=== PATIENT | female | born 1955 | race Caucasian/White ===

== ENCOUNTER → 2017-02-15 | Outpatient (CLI) | payer OTHER ==
[2017-02-15 07:15] LABS: HEMOGLOBIN 15.4 g/dL (11.7-16.4)
[2017-02-15 07:38] LABS: PATH.CAST-FLAG NOT PRESENT; SPERM-FLAG NOT PRESENT; SRC-FLAG NOT PRESENT; XTAL-FLAG NOT PRESENT; YLC-FLAG NOT PRESENT
[2017-02-15 08:03] LABS: ASPARTATE AMINO TRANSFERASE 27 U/L (15-37); BLOOD UREA NITROGEN 22 mg/dL (7-18)
== END | disposition home or self-care (01) ==
LOC: LAB 06:55
PROVIDERS: ATTEND Family Medicine
DX: I10 Essential (primary) hypertension (principal); E78.2 Mixed hyperlipidemia; E03.9 Hypothyroidism, unspecified; E55.9 Vitamin D deficiency, unspecified; D70.9 Neutropenia, unspecified; N07.9 Hereditary nephropathy, not elsewhere classified with unspecified morphologic lesions
CPT/HCPCS: 36415; 80053; 80061; 81001; 82306; 84443; 85025

== ENCOUNTER 2017-10-02 17:30 | Emergency (ER) | payer OTHER ==
[~2017-10-02] VITALS: Ht 165.1 cm; Wt 55.6 kg
[2017-10-02 17:35] VITALS: BP 146/105
[2017-10-02 18:19] LABS: HEMATOCRIT 42.9 % (34.6-47.8); HEMOGLOBIN 14.6 g/dL (11.7-16.4); WHITE BLOOD COUNT 11.6 x10^3/uL (3.4-10)
[2017-10-02 18:26] LABS: ASPARTATE AMINO TRANSFERASE 18 U/L (15-37); BLOOD UREA NITROGEN 10 mg/dL (7-18)
[2017-10-02] MEDS ORDERED: SODIUM CHLORIDE 0.9% 1,000ML IVBOLUS ONE ×2 (18:30→20:30)
[2017-10-02] MEDS ORDERED: SODIUM CHLORIDE FLUSH 10ML SYR IVF ONE (19:00)
[2017-10-02 19:02] LABS: PATH.CAST-FLAG NOT PRESENT; SPERM-FLAG NOT PRESENT; SRC-FLAG NOT PRESENT; XTAL-FLAG NOT PRESENT; YLC-FLAG NOT PRESENT
[2017-10-02] MEDS ORDERED: LEVO50TA5 PO (19:04)
[2017-10-02] MEDS ORDERED: LISI-167 PO (19:05)
[2017-10-02] MEDS ORDERED: AMLO10TA2 PO (19:05)
[2017-10-02] MEDS ORDERED: METH2.5T PO (19:07)
[2017-10-02] MEDS ORDERED: CELE200C PO (19:07)
[2017-10-02] MEDS ORDERED: ALEN70TA3 PO (19:08)
[2017-10-02] MEDS ORDERED: ADAL10SY SQ (19:09)
[2017-10-02] MEDS ORDERED: CHOL200040 PO (19:10)
[2017-10-02] MEDS ORDERED: FOLI-17 PO (19:10)
[2017-10-02] MEDS ORDERED: DOCU240C53 PO (19:11)
[2017-10-02] MEDS ORDERED: OMNIPAQUE 350 MG/ML, 100ML BOTTLE ONE (19:25)
== END 2017-10-02 21:39 | disposition home or self-care (01) ==
LOC: ED 21:33
DX: K52.9 Noninfective gastroenteritis and colitis, unspecified (principal); M06.9 Rheumatoid arthritis, unspecified
CPT/HCPCS: 36415; 74177; 80053; 81001; 85025; 87086; 99285; J7030; Q9967

== ENCOUNTER 2017-10-05 19:22 | Inpatient (IN) | payer OTHER ==
[~2017-10-05] VITALS: Ht 165.1 cm; Wt 54.2 kg
[~2017-10-05 19:22] MED LIST: ADAL10SY SQ; ALEN70TA3 PO; AMLO10TA2 PO; CELE200C PO; CHOL200040 PO; DOCU240C53 PO; FOLI-17 PO; LEVO50TA5 PO; LISI-167 PO; METH2.5T PO
[2017-10-05] MEDS ORDERED: ONDANSETRON 2MG/ML, 2ML IVPush ONE (20:30)
[2017-10-05] MEDS ORDERED: SODIUM CHLORIDE 0.9% 1,000ML IVBOLUS ONE (20:30)
[2017-10-05] MEDS ORDERED: ONDANSETRON 2MG/ML, 2ML ONE (20:41)
[2017-10-05 20:47] LABS: HEMATOCRIT 35.8 % (34.6-47.8); HEMOGLOBIN 12.1 g/dL (11.7-16.4); WHITE BLOOD COUNT 4.7 x10^3/uL (3.4-10)
[2017-10-05 20:59] LABS: ASPARTATE AMINO TRANSFERASE 33 U/L (15-37); BLOOD UREA NITROGEN 8 mg/dL (7-18)
[2017-10-05] MEDS ORDERED: CIPROFLOXACIN/PMX 400MG/200ML 200 ML IV ONE (22:30)
[2017-10-05] MEDS ORDERED: METRONIDAZOLE PMX 500MG/100ML 100 ML IV ONE (22:30)
[2017-10-05] MEDS ORDERED: SODIUM CHLORIDE 0.9% 1,000 ML IV ONE (22:34)
[2017-10-05] MEDS ORDERED: METRONIDAZOLE PMX 500MG/100ML 100 ML ONE (22:52)
[2017-10-05] MEDS ORDERED: ONDANSETRON 2MG/ML, 2ML IVPush PRN (23:00)
[2017-10-05] MEDS ORDERED: HYDROmorphone 1 MG/ML, 1ML IVPush PRN (23:00)
[2017-10-05 23:49] VITALS: BP 132/87
[2017-10-06] MEDS ORDERED: HYDROmorphone 2 MG/ML, 1ML IVPush PRN
[2017-10-06] MEDS ORDERED: ACETAMINOPHEN 325 MG TABLET PO PRN
[2017-10-06] MEDS: LACTATED RINGERS 1,000 ML IV SCH ×3 (00:51→22:21)
[2017-10-06] MEDS: CEFTRIAXONE PMX 1GM/50ML 50 ML IV SCH (00:51)
[2017-10-06] MEDS: ENOXAPARIN 40 MG/0.4 ML SQ SCH ×2 (00:55→23:22)
[2017-10-06] MEDS ORDERED: CIPROFLOXACIN/PMX 400MG/200ML 200 ML IV ONE (02:00)
[2017-10-06] MEDS: ONDANSETRON 2MG/ML, 2ML IVPush PRN ×3 (04:22→20:31)
[2017-10-06 04:31] LABS: HEMATOCRIT 36.1 % (34.6-47.8); HEMOGLOBIN 12.2 g/dL (11.7-16.4); WHITE BLOOD COUNT 3.8 x10^3/uL (3.4-10)
[2017-10-06 04:32] VITALS: BP 106/69
[2017-10-06 04:41] LABS: ASPARTATE AMINO TRANSFERASE 26 U/L (15-37); BLOOD UREA NITROGEN 5 mg/dL (7-18)
[2017-10-06 08:46] VITALS: BP 127/81
[2017-10-06] MEDS: AMLODIPINE 5 MG TABLET PO SCH (08:53)
[2017-10-06] MEDS: CHOLECALCIFEROL 1,000 UNIT TABLET PO SCH (08:53)
[2017-10-06] MEDS: FOLIC ACID 1 MG TABLET PO SCH (08:53)
[2017-10-06] MEDS: DOCUSATE 100 MG CAPSULE PO SCH ×2 (08:53→20:33)
[2017-10-06] MEDS: LEVOTHYROXINE 50 MCG TABLET PO SCH (08:53)
[2017-10-06] MEDS: LISINOPRIL 10 MG TABLET PO SCH (08:55)
[2017-10-06] MEDS: METRONIDAZOLE PMX 500MG/100ML 100 ML IV SCH ×3 (09:39→23:22)
[2017-10-06] MEDS: OXYcodone IR 5MG TABLET PO PRN ×2 (11:53→22:24)
[2017-10-06 15:54] VITALS: BP 132/83
[2017-10-06 18:36] VITALS: BP 123/82
[2017-10-07 00:26] VITALS: BP 115/75
[2017-10-07] MEDS: CEFTRIAXONE PMX 1GM/50ML 50 ML IV SCH ×2 (00:29→23:30)
[2017-10-07] MEDS: ONDANSETRON 2MG/ML, 2ML IVPush PRN ×2 (05:36→15:16)
[2017-10-07] MEDS: METRONIDAZOLE PMX 500MG/100ML 100 ML IV SCH ×2 (07:43→15:34)
[2017-10-07 07:49] VITALS: BP 130/81
[2017-10-07] MEDS: DOCUSATE 100 MG CAPSULE PO SCH ×2 (07:49→20:32)
[2017-10-07] MEDS: LEVOTHYROXINE 50 MCG TABLET PO SCH (07:51)
[2017-10-07] MEDS: LISINOPRIL 10 MG TABLET PO SCH (07:52)
[2017-10-07] MEDS: AMLODIPINE 5 MG TABLET PO SCH (07:52)
[2017-10-07] MEDS: CHOLECALCIFEROL 1,000 UNIT TABLET PO SCH (07:52)
[2017-10-07] MEDS: FOLIC ACID 1 MG TABLET PO SCH (07:52)
[2017-10-07] MEDS: LACTATED RINGERS 1,000 ML IV SCH ×2 (10:21→20:27)
[2017-10-07] MEDS ORDERED: OMNIPAQUE 350 MG/ML, 100ML BOTTLE ONE (12:59)
[2017-10-07 13:39] VITALS: BP 140/92
[2017-10-07 20:01] VITALS: BP 133/81
[2017-10-07] MEDS: KETOROLAC 30 MG/1 ML IVPush SCH (20:26)
[2017-10-07] MEDS: ENOXAPARIN 40 MG/0.4 ML SQ SCH (23:31)
[2017-10-08] MEDS: METRONIDAZOLE PMX 500MG/100ML 100 ML IV SCH ×2 (00:15→07:49)
[2017-10-08] MEDS: ONDANSETRON 2MG/ML, 2ML IVPush PRN (00:15)
[2017-10-08] MEDS: KETOROLAC 30 MG/1 ML IVPush SCH (02:13)
[2017-10-08 02:19] VITALS: BP 111/71
[2017-10-08] MEDS ORDERED: KETOROLAC 30 MG/1 ML IVPush SCH (07:30)
[2017-10-08] MEDS: LACTATED RINGERS 1,000 ML IV SCH (07:49)
[2017-10-08] MEDS: LEVOTHYROXINE 50 MCG TABLET PO SCH (07:57)
[2017-10-08 08:13] VITALS: BP 133/79
[2017-10-08] MEDS ORDERED: CIPR500T87 PO (08:29)
[2017-10-08] MEDS ORDERED: METR500T PO (08:29)
[2017-10-08] MEDS ORDERED: ONDA4TAB7 PO (08:33)
[2017-10-08] MEDS ORDERED: FLUC100T PO (08:33)
== END 2017-10-08 09:00 | disposition home or self-care (01) | DRG 392 ==
LOC: ED 20:16 → EDIP 22:40 → 3NW 23:37
PROVIDERS: ADMIT Internal Medicine; ATTEND Hospitalist
DX: K57.92 Diverticulitis of intestine, part unspecified, without perforation or abscess without bleeding (principal); E44.0 Moderate protein-calorie malnutrition; Z68.1 Body mass index [BMI] 19.9 or less, adult; E03.9 Hypothyroidism, unspecified; I10 Essential (primary) hypertension; I86.2 Pelvic varices; K52.9 Noninfective gastroenteritis and colitis, unspecified; M06.9 Rheumatoid arthritis, unspecified; M81.0 Age-related osteoporosis without current pathological fracture; Z79.899 Other long term (current) drug therapy; Z88.8 Allergy status to other drugs, medicaments and biological substances
CPT/HCPCS: 36415; 74177; 80053; 81003; 83605; 83690; 83735; 84100; 84145; 85025; 85651; 86141; 87324; 96361; 96374; J0696; J0744; J1650; J1885; J2405; Q9967; J7030; J7120

== ENCOUNTER → 2017-11-15 | Outpatient (CLI) | payer OTHER ==
[~2017-11-15] MED LIST changes: +CIPR500T87 PO; +FLUC100T PO; +METR500T PO; +ONDA4TAB7 PO
[2017-11-15 10:21] LABS: BASOPHILS # (AUTO) 0.01 x10^3/uL (0-0.1); BASOPHILS % (AUTO) 0 % (0-1); EOSINOPHILS # (AUTO) 0.06 x10^3/uL (0-0.4); EOSINOPHILS % (AUTO) 1 % (1-7); LYMPHOCYTES # (AUTO) 1.29 x10^3/uL (1-3.4); LYMPHOCYTES % (AUTO) 27 % (22-44); MD NO; MEAN CORPUSCULAR HEMOGLOBIN 32.2 pg (27.0-34.8); MEAN CORPUSCULAR HGB CONC 34.1 g/dL (32.4-35.8); MEAN CORPUSCULAR VOLUME 94.4 fL (80-100); MEAN PLATELET VOLUME 7.6 fL (7.4-10.4); MONOCYTES # (AUTO) 0.44 x10^3/uL (0.2-0.8); MONOCYTES % (AUTO) 9 % (2-9); NEUTROPHILS # (AUTO) 3.05 x10^3/uL (1.8-6.8); NEUTROPHILS % (AUTO) 63 % (42-75); PLATELET COUNT 338 x10^3/uL (130-400); RED BLOOD COUNT 4.58 x10^6/uL (3.82-5.3); RED CELL DISTRIBUTION WIDTH 14.6 % (9.6-15.2)
[2017-11-15 10:23] LABS: MICROSCOPIC AUTO
[2017-11-15 10:29] LABS: HCT (SEDRATE) 43.2 % (34.6-47.8)
[2017-11-15 10:32] LABS: ALANINE AMINOTRANSFERASE 40 U/L (12-78); ALBUMIN 3.8 g/dL (3.4-5.0); ANION GAP 8 mmol/L (5-15); CALCIUM 8.3 mg/dL (8.5-10.1); CHLORIDE 104 mmol/L (98-107); CHOLESTEROL, TOTAL 130 mg/dL (140-239); TRIGLYCERIDES 70 mg/dL (50-200); VLDL CHOLESTEROL 14 mg/dL (0-25)
[2017-11-15 10:42] LABS: ALKALINE PHOSPHATASE 63 U/L (45-117); BILIRUBIN,TOTAL 0.5 mg/dL (0.2-1.0); CHOL/HDL RATIO 2.7; HDL CHOL % 38 % (28-40); HDL CHOLESTEROL (DIRECT) 49 mg/dL (40-60); LDL CHOLESTEROL,CALCULATED 67 mg/dL (54-169); LDL/HDL RATIO 1.4 (0.5-3.0)
== END ==
LOC: LAB 10:02
PROVIDERS: ATTEND Specialist
DX: I10 Essential (primary) hypertension (principal); E78.9 Disorder of lipoprotein metabolism, unspecified; E03.9 Hypothyroidism, unspecified; E55.9 Vitamin D deficiency, unspecified; M05.79 Rheumatoid arthritis with rheumatoid factor of multiple sites without organ or systems involvement; M05.40 Rheumatoid myopathy with rheumatoid arthritis of unspecified site; Z77.21 Contact with and (suspected) exposure to potentially hazardous body fluids; Z79.899 Other long term (current) drug therapy
CPT/HCPCS: 36415; 80053; 80061; 81001; 82306; 84443; 85025; 85651; 86803

== ENCOUNTER → 2017-11-29 | Outpatient (CLI) | payer OTHER ==
[~2017-11-29] MED LIST changes: +CHOL100011 PO
== END | disposition home or self-care (01) ==
LOC: STAR 08:00
PROVIDERS: ATTEND Surgery
DX: Z01.818 Encounter for other preprocedural examination (principal)
CPT/HCPCS: 93005

== ENCOUNTER 2017-12-12 06:11 | Inpatient (IN) | payer OTHER ==
[2017-11-29 08:30] VITALS: BP 119/76
[~2017-12-12] VITALS: Ht 165.1 cm; Wt 53.6 kg
[2017-12-12] MEDS ORDERED: BUPIVACAINE/PF 0.5% ONE (06:41)
[2017-12-12] MEDS ORDERED: INDOCYANINE GREEN 25 MG VIAL ONE (06:41)
[2017-12-12] MEDS ORDERED: LACTATED RINGERS 1,000 ML IV SCH (06:42)
[2017-12-12] MEDS ORDERED: ACETAMINOPHEN 500 MG TABLET PO ONE (07:00)
[2017-12-12] MEDS ORDERED: GABAPENTIN 300 MG CAPSULE PO ONE (07:00)
[2017-12-12] MEDS ORDERED: ROCURONIUM 10 MG/ML,10ML ONE (07:17)
[2017-12-12] MEDS ORDERED: PROPOFOL 10 MG/ML, 20ML ONE (07:17)
[2017-12-12] MEDS ORDERED: LIDOCAINE-MPF 2% ,5ML ONE (07:17)
[2017-12-12] MEDS ORDERED: DEXAMETHASONE 4 MG/ML, 1ML ONE ×2 (07:29)
[2017-12-12] MEDS ORDERED: ROPIvacaine/PF 0.2%, 20 ML ONE ×2 (07:37)
[2017-12-12] MEDS ORDERED: FENTANYL PF 100 MCG/2ML ONE ×2 (08:09→09:32)
[2017-12-12] MEDS ORDERED: PHENYLEPHRINE 10 MG/ML ONE (08:26)
[2017-12-12] MEDS ORDERED: ONDANSETRON 2MG/ML, 2ML ONE ×4 (08:50→10:09)
[2017-12-12] MEDS ORDERED: HYDROcodone/APAP 7.5-325MG/15ML UDC PO PRN (09:00)
[2017-12-12] MEDS ORDERED: morphine SULFATE 10 MG/ML, 1ML IV PRN (09:00)
[2017-12-12] MEDS ORDERED: OXYcodone 5 MG/5 ML ORAL.SOL UDC PO PRN (09:00)
[2017-12-12] MEDS ORDERED: ONDANSETRON 2MG/ML, 2ML IVPush PRN (09:00)
[2017-12-12] MEDS ORDERED: MEPERIDINE/PF 25MG/0.5ML IVPush PRN (09:00)
[2017-12-12] MEDS ORDERED: GLYCOPYRROLATE 0.2MG/1ML, 5ML ONE (09:08)
[2017-12-12] MEDS ORDERED: NEOSTIGMINE 1 MG/ML, 10ML ONE (09:08)
[2017-12-12] MEDS ORDERED: OXYcodone 5 MG/5 ML ORAL.SOL UDC ONE (09:32)
[2017-12-12] MEDS: FENTANYL PF 100 MCG/2ML IV PRN ×2 (09:33→09:41)
[2017-12-12] MEDS ORDERED: LABETALOL 5MG/ML, 20ML ONE (09:44)
[2017-12-12] MEDS ORDERED: hydrALAzine 20 MG/ML, 1ML ONE (09:45)
[2017-12-12] MEDS ORDERED: MEPERIDINE/PF 50 MG/ML ONE (09:59)
[2017-12-12] MEDS ORDERED: LABETALOL 5MG/ML, 20ML IV PRN (10:00)
[2017-12-12] MEDS ORDERED: DIPHENHYDRAMINE 50 MG/ML, 1ML ONE (12:30)
[2017-12-12 13:38] VITALS: BP 133/86
[2017-12-12] MEDS: ONDANSETRON 2MG/ML, 2ML IV PRN (13:49)
[2017-12-12] MEDS ORDERED: HYDROmorphone 1 MG/ML, 1ML IVPush PRN (14:00)
[2017-12-12] MEDS ORDERED: HALOPERIDOL 5 MG/ML IVPush PRN (14:00)
[2017-12-12] MEDS ORDERED: SCOPOLAMINE PATCH, 1.5MG PATCH.TD72 TD PRN (14:00)
[2017-12-12] MEDS ORDERED: DIPHENHYDRAMINE 50 MG/ML, 1ML IVPush PRN (14:00)
[2017-12-12] MEDS ORDERED: DEXAMETHASONE 4 MG/ML, 1ML IVPush PRN (14:00)
[2017-12-12] MEDS: ACETAMINOPHEN 500 MG TABLET PO SCH ×2 (14:23→20:14)
[2017-12-12] MEDS: OXYcodone IR 5MG TABLET PO PRN ×2 (15:10→18:09)
[2017-12-12] MEDS: IBUPROFEN 800 MG TABLET PO SCH ×2 (16:08→22:03)
[2017-12-12] MEDS: D5%-0.45NACL+KCL 20MEQ 1,000 ML IV SCH (16:08)
[2017-12-12] MEDS ORDERED: CEFOTETAN 1 GM ONE (16:10)
[2017-12-12 18:54] VITALS: BP 115/66
[2017-12-13 00:47] VITALS: BP 109/62
[2017-12-13] MEDS: ENOXAPARIN 40 MG/0.4 ML SQ SCH (02:24)
[2017-12-13] MEDS: ACETAMINOPHEN 500 MG TABLET PO SCH ×4 (02:24→20:50)
[2017-12-13 03:41] VITALS: BP 118/72
[2017-12-13 04:02] LABS: ANION GAP 7 mmol/L (5-15); BASOPHILS # (AUTO) 0.03 x10^3/uL (0-0.1); BASOPHILS % (AUTO) 0 % (0-1); CHLORIDE 109 mmol/L (98-107); CREATININE 0.67 mg/dL (0.55-1.02); EOSINOPHILS # (AUTO) 0.01 x10^3/uL (0-0.4); EOSINOPHILS % (AUTO) 0 % (1-7); LYMPHOCYTES % (AUTO) 16 % (22-44); MD NO; MEAN CORPUSCULAR HEMOGLOBIN 31.7 pg (27.0-34.8); MEAN CORPUSCULAR HGB CONC 33.3 g/dL (32.4-35.8); MEAN CORPUSCULAR VOLUME 95.2 fL (80-100); MEAN PLATELET VOLUME 8.4 fL (7.4-10.4); MONOCYTES # (AUTO) 1.29 x10^3/uL (0.2-0.8); MONOCYTES % (AUTO) 14 % (2-9); NEUTROPHILS # (AUTO) 6.65 x10^3/uL (1.8-6.8); NEUTROPHILS % (AUTO) 70 % (42-75); PLATELET COUNT 267 x10^3/uL (130-400); RED BLOOD COUNT 4.26 x10^6/uL (3.82-5.3); RED CELL DISTRIBUTION WIDTH 14.9 % (9.6-15.2)
[2017-12-13] MEDS: LEVOTHYROXINE 50 MCG TABLET PO SCH (05:11)
[2017-12-13] MEDS ORDERED: ALENDRONATE 70 MG TABLET PO SCH (06:30)
[2017-12-13 06:52] VITALS: BP 134/79
[2017-12-13] MEDS: IBUPROFEN 800 MG TABLET PO SCH ×3 (08:35→22:56)
[2017-12-13] MEDS: AMLODIPINE 5 MG TABLET PO SCH (08:37)
[2017-12-13] MEDS: D5%-0.45NACL+KCL 20MEQ 1,000 ML IV SCH (08:38)
[2017-12-13] MEDS: CHOLECALCIFEROL 1,000 UNIT TABLET PO SCH (08:38)
[2017-12-13 14:30] VITALS: BP 143/90
[2017-12-13] MEDS: ONDANSETRON 2MG/ML, 2ML IV PRN (16:04)
[2017-12-13 19:57] VITALS: BP 127/76
[2017-12-14 02:29] VITALS: BP 138/98
[2017-12-14] MEDS: ACETAMINOPHEN 500 MG TABLET PO SCH ×2 (02:37→08:24)
[2017-12-14] MEDS: ENOXAPARIN 40 MG/0.4 ML SQ SCH (02:37)
[2017-12-14 03:34] LABS: BASOPHILS # (AUTO) 0.03 x10^3/uL (0-0.1); BASOPHILS % (AUTO) 1 % (0-1); EOSINOPHILS # (AUTO) 0.07 x10^3/uL (0-0.4); EOSINOPHILS % (AUTO) 1 % (1-7); LYMPHOCYTES # (AUTO) 1.75 x10^3/uL (1-3.4); LYMPHOCYTES % (AUTO) 30 % (22-44); MD NO; MEAN CORPUSCULAR HEMOGLOBIN 31.8 pg (27.0-34.8); MEAN CORPUSCULAR HGB CONC 33.3 g/dL (32.4-35.8); MEAN CORPUSCULAR VOLUME 95.5 fL (80-100); MEAN PLATELET VOLUME 8.1 fL (7.4-10.4); MONOCYTES # (AUTO) 0.77 x10^3/uL (0.2-0.8); MONOCYTES % (AUTO) 13 % (2-9); NEUTROPHILS # (AUTO) 3.18 x10^3/uL (1.8-6.8); NEUTROPHILS % (AUTO) 55 % (42-75); PLATELET COUNT 235 x10^3/uL (130-400); RED BLOOD COUNT 4.28 x10^6/uL (3.82-5.3); RED CELL DISTRIBUTION WIDTH 14.6 % (9.6-15.2)
[2017-12-14 03:48] LABS: ANION GAP 9 mmol/L (5-15); CALCIUM 8.1 mg/dL (8.5-10.1); CHLORIDE 109 mmol/L (98-107)
[2017-12-14 03:49] LABS: CREATININE 0.52 mg/dL (0.55-1.02)
[2017-12-14] MEDS: D5%-0.45NACL+KCL 20MEQ 1,000 ML IV SCH (05:33)
[2017-12-14] MEDS: LEVOTHYROXINE 50 MCG TABLET PO SCH (05:44)
[2017-12-14] MEDS ORDERED: ALENDRONATE 70 MG TABLET PO SCH (06:30)
[2017-12-14 08:08] VITALS: BP 130/90
[2017-12-14] MEDS: IBUPROFEN 800 MG TABLET PO SCH (08:24)
[2017-12-14] MEDS: AMLODIPINE 5 MG TABLET PO SCH (08:24)
[2017-12-14] MEDS: CHOLECALCIFEROL 1,000 UNIT TABLET PO SCH (08:25)
[2017-12-14] MEDS ORDERED: OXYC-302 PO (12:14)
== END 2017-12-14 12:52 | disposition home or self-care (01) | DRG 331 ==
LOC: ORIP 06:11 → 4NOR 11:55
PROVIDERS: ADMIT Surgery; ATTEND Surgery
PROC: 8E0W4CZ Robotic Assisted Procedure of Trunk Region, Percutaneous Endoscopic Approach (ICD-10-PCS; 2017-12-12)
PROC: 0DTN4ZZ Resection of Sigmoid Colon, Percutaneous Endoscopic Approach (ICD-10-PCS; principal; 2017-12-12 07:30)
DX: K57.32 Diverticulitis of large intestine without perforation or abscess without bleeding (principal); M06.9 Rheumatoid arthritis, unspecified
CPT/HCPCS: 36415; 80048; 85025; 86850; 86900; 88309; C1729; J1100; J1650; J2175; J2405; J2704; J2710; J2795; J3010; J3490; C1765; J1200; J2370; J3480; S0074

== ENCOUNTER → 2018-04-10 | Outpatient (CLI) | payer OTHER ==
[~2018-04-10] MED LIST changes: +OXYC-302 PO
[2018-04-10 07:38] LABS: MICROSCOPIC NOT IND
[2018-04-10 07:41] LABS: CULTURE INDICATED? NO
[2018-04-10 07:43] LABS: BASOPHILS # (AUTO) 0.03 x10^3/uL (0-0.1); BASOPHILS % (AUTO) 1 % (0-1); EOSINOPHILS # (AUTO) 0.09 x10^3/uL (0-0.4); EOSINOPHILS % (AUTO) 2 % (1-7); LYMPHOCYTES # (AUTO) 0.83 x10^3/uL (1-3.4); LYMPHOCYTES % (AUTO) 21 % (22-44); MD NO; MEAN CORPUSCULAR HEMOGLOBIN 32.1 pg (27.0-34.8); MEAN CORPUSCULAR HGB CONC 33.8 g/dL (32.4-35.8); MEAN CORPUSCULAR VOLUME 94.9 fL (80-100); MEAN PLATELET VOLUME 7.9 fL (7.4-10.4); MONOCYTES # (AUTO) 0.43 x10^3/uL (0.2-0.8); MONOCYTES % (AUTO) 11 % (2-9); NEUTROPHILS # (AUTO) 2.59 x10^3/uL (1.8-6.8); NEUTROPHILS % (AUTO) 65 % (42-75); PLATELET COUNT 270 x10^3/uL (130-400); RED BLOOD COUNT 4.61 x10^6/uL (3.82-5.3); RED CELL DISTRIBUTION WIDTH 14.6 % (9.6-15.2)
[2018-04-10 07:46] LABS: ALANINE AMINOTRANSFERASE 52 U/L (12-78); ALBUMIN 3.6 g/dL (3.4-5.0); ANION GAP 5 mmol/L (5-15); CALCIUM 8.2 mg/dL (8.5-10.1); CHLORIDE 110 mmol/L (98-107); CHOLESTEROL, TOTAL 175 mg/dL (140-239); CREATININE 0.71 mg/dL (0.55-1.02)
[2018-04-10 07:56] LABS: ALKALINE PHOSPHATASE 78 U/L (45-117); BILIRUBIN,TOTAL 0.3 mg/dL (0.2-1.0); HDL CHOL % 51 % (28-40); HDL CHOLESTEROL (DIRECT) 89 mg/dL (40-60); LDL CHOLESTEROL,CALCULATED 78 mg/dL (54-169); LDL/HDL RATIO 0.9 (0.5-3.0); TOTAL PROTEIN 6.8 g/dL (6.4-8.2); TRIGLYCERIDES 39 mg/dL (50-200); VLDL CHOLESTEROL 8 mg/dL (0-25)
== END | disposition home or self-care (01) ==
LOC: LAB 07:10
PROVIDERS: ATTEND Family Medicine
DX: I10 Essential (primary) hypertension (principal); E78.2 Mixed hyperlipidemia; E03.9 Hypothyroidism, unspecified; M05.40 Rheumatoid myopathy with rheumatoid arthritis of unspecified site; Z79.899 Other long term (current) drug therapy
CPT/HCPCS: 36415; 80053; 80061; 81003; 82306; 84443; 85025

== ENCOUNTER → 2018-08-22 | Outpatient (CLI) | payer OTHER ==
[~2018-08-22] MED LIST changes: -AMLO10TA2 PO; +AMLO10TA6 PO
[2018-08-22 08:11] LABS: BASOPHILS # (AUTO) 0.02 x10^3/uL (0-0.1); BASOPHILS % (AUTO) 1 % (0-1); EOSINOPHILS # (AUTO) 0.19 x10^3/uL (0-0.4); EOSINOPHILS % (AUTO) 5 % (1-7); LYMPHOCYTES # (AUTO) 0.74 x10^3/uL (1-3.4); LYMPHOCYTES % (AUTO) 20 % (22-44); MD NO; MEAN CORPUSCULAR HEMOGLOBIN 32.2 pg (27.0-34.8); MEAN CORPUSCULAR VOLUME 94.7 fL (80-100); MEAN PLATELET VOLUME 7.7 fL (7.4-10.4); MONOCYTES # (AUTO) 0.49 x10^3/uL (0.2-0.8); MONOCYTES % (AUTO) 13 % (2-9); NEUTROPHILS # (AUTO) 2.29 x10^3/uL (1.8-6.8); NEUTROPHILS % (AUTO) 61 % (42-75); PLATELET COUNT 241 x10^3/uL (130-400); RED BLOOD COUNT 4.55 x10^6/uL (3.82-5.3); RED CELL DISTRIBUTION WIDTH 14.1 % (9.6-15.2)
[2018-08-22 08:23] LABS: ALANINE AMINOTRANSFERASE 41 U/L (12-78); ALBUMIN 3.5 g/dL (3.4-5.0); ANION GAP 7 mmol/L (5-15); CALCIUM 8.6 mg/dL (8.5-10.1); CHLORIDE 108 mmol/L (98-107); CHOLESTEROL, TOTAL 158 mg/dL (140-239); CREATININE 0.64 mg/dL (0.55-1.02)
[2018-08-22 08:33] LABS: ALKALINE PHOSPHATASE 63 U/L (45-117); BILIRUBIN,TOTAL 0.4 mg/dL (0.2-1.0); CHOL/HDL RATIO 1.9; HDL CHOL % 53 % (28-40); HDL CHOLESTEROL (DIRECT) 83 mg/dL (40-60); LDL CHOLESTEROL,CALCULATED 66 mg/dL (54-169); LDL/HDL RATIO 0.8 (0.5-3.0); TOTAL PROTEIN 6.7 g/dL (6.4-8.2); TRIGLYCERIDES 47 mg/dL (50-200); VLDL CHOLESTEROL 9 mg/dL (0-25)
[2018-08-22 08:55] LABS: MICROSCOPIC INDICATED
[2018-08-22 09:38] LABS: CULTURE INDICATED? NO
== END | disposition home or self-care (01) ==
LOC: LAB 07:43
PROVIDERS: ATTEND Family Medicine
DX: E83.51 Hypocalcemia (principal); I10 Essential (primary) hypertension; E78.2 Mixed hyperlipidemia; E03.9 Hypothyroidism, unspecified; M05.40 Rheumatoid myopathy with rheumatoid arthritis of unspecified site; D70.9 Neutropenia, unspecified
CPT/HCPCS: 36415; 80053; 80061; 81001; 82330; 83970; 84443; 85025

== ENCOUNTER → 2019-04-24 | Outpatient (CLI) | payer OTHER ==
[~2019-04-24] MED LIST changes: -AMLO10TA6 PO; +AMLO10TA8 PO
[2019-04-24 07:50] LABS: MICROSCOPIC NOT IND
[2019-04-24 07:51] LABS: BASOPHILS # (AUTO) 0.03 x10^3/uL (0-0.1); BASOPHILS % (AUTO) 1 % (0-1); EOSINOPHILS # (AUTO) 0.08 x10^3/uL (0-0.4); EOSINOPHILS % (AUTO) 2 % (1-7); LYMPHOCYTES # (AUTO) 0.83 x10^3/uL (1-3.4); LYMPHOCYTES % (AUTO) 17 % (22-44); MD NO; MEAN CORPUSCULAR HEMOGLOBIN 31.5 pg (27.0-34.8); MEAN CORPUSCULAR HGB CONC 32.8 g/dL (32.4-35.8); MEAN CORPUSCULAR VOLUME 96.1 fL (80-100); MEAN PLATELET VOLUME 7.3 fL (7.4-10.4); MONOCYTES # (AUTO) 0.47 x10^3/uL (0.2-0.8); MONOCYTES % (AUTO) 10 % (2-9); NEUTROPHILS # (AUTO) 3.46 x10^3/uL (1.8-6.8); NEUTROPHILS % (AUTO) 71 % (42-75); PLATELET COUNT 382 x10^3/uL (130-400); RED BLOOD COUNT 4.48 x10^6/uL (3.82-5.3); RED CELL DISTRIBUTION WIDTH 14.2 % (9.6-15.2)
[2019-04-24 07:59] LABS: ALBUMIN 3.6 g/dL (3.4-5.0); ANION GAP 6 mmol/L (5-15); CALCIUM 8.6 mg/dL (8.5-10.1); CHLORIDE 109 mmol/L (98-107)
[2019-04-24 08:10] LABS: ALANINE AMINOTRANSFERASE 38 U/L (12-78); ALKALINE PHOSPHATASE 78 U/L (45-117); BILIRUBIN,TOTAL 0.5 mg/dL (0.2-1.0); CHOLESTEROL, TOTAL 157 mg/dL (140-239); CREATININE 0.72 mg/dL (0.55-1.02); HDL CHOL % 50 % (28-40); HDL CHOLESTEROL (DIRECT) 78 mg/dL (40-60); LDL CHOLESTEROL,CALCULATED 69 mg/dL (54-169); LDL/HDL RATIO 0.9 (0.5-3.0); TOTAL PROTEIN 6.8 g/dL (6.4-8.2); TRIGLYCERIDES 52 mg/dL (50-200); VLDL CHOLESTEROL 10 mg/dL (0-25)
== END | disposition home or self-care (01) ==
LOC: LAB 07:18
PROVIDERS: ATTEND Family Medicine
DX: E78.2 Mixed hyperlipidemia (principal); I10 Essential (primary) hypertension; E03.9 Hypothyroidism, unspecified; E55.9 Vitamin D deficiency, unspecified; M05.40 Rheumatoid myopathy with rheumatoid arthritis of unspecified site
CPT/HCPCS: 36415; 80053; 80061; 81003; 82306; 84443; 85025

== ENCOUNTER 2019-05-29 12:08 | Outpatient (CLI) | payer OTHER ==
[2019-05-29] MEDS ORDERED: OMNIPAQUE 350 MG/ML, 100ML BOTTLE ONE (15:18)
== END 2019-05-29 23:59 | disposition home or self-care (01) ==
LOC: CFH 12:08
PROVIDERS: ATTEND Surgery
DX: K43.2 Incisional hernia without obstruction or gangrene (principal); K76.0 Fatty (change of) liver, not elsewhere classified; K59.00 Constipation, unspecified
CPT/HCPCS: 74177; Q9967

== ENCOUNTER → 2019-12-09 | Outpatient (CLI) | payer OTHER ==
[~2019-12-09] MED LIST changes: +ASPI-496 PO
[2019-12-09 14:16] LABS: ALANINE AMINOTRANSFERASE 50 U/L (12-78); ALBUMIN 3.7 g/dL (3.4-5.0); ANION GAP 5 mmol/L (5-15); CALCIUM 9.1 mg/dL (8.5-10.1); CHLORIDE 111 mmol/L (98-107); CREATININE 0.81 mg/dL (0.55-1.02)
[2019-12-09 14:19] LABS: ALKALINE PHOSPHATASE 93 U/L (45-117); BILIRUBIN,TOTAL 0.4 mg/dL (0.2-1.0)
== END | disposition home or self-care (01) ==
LOC: STAR 13:21
PROVIDERS: ATTEND Surgery
DX: Z01.818 Encounter for other preprocedural examination (principal); K40.90 Unilateral inguinal hernia, without obstruction or gangrene, not specified as recurrent
CPT/HCPCS: 36415; 80053; 93005

== ENCOUNTER 2019-12-23 10:10 | Day surgery (SDC) | payer OTHER ==
[~2019-12-23] VITALS: Ht 163.8 cm; Wt 59.3 kg
[2019-12-23 10:44] VITALS: BP 121/84
[2019-12-23] MEDS ORDERED: LACTATED RINGERS 1,000 ML IV SCH (11:00)
[2019-12-23] MEDS ORDERED: BUPIVACAINE/PF 0.5% ONE (12:11)
[2019-12-23] MEDS ORDERED: MIDAZOLAM 1 MG/ML, 2ML ONE (12:25)
[2019-12-23] MEDS ORDERED: FENTANYL PF 100 MCG/2ML ONE ×2 (12:25→14:18)
[2019-12-23] MEDS ORDERED: SUGAMMADEX 200 MG/2 ML IVPush ONE ×2 (12:35→13:26)
[2019-12-23] MEDS ORDERED: PROPOFOL 10 MG/ML, 20ML ONE ×2 (12:35→12:52)
[2019-12-23] MEDS ORDERED: ONDANSETRON 2MG/ML, 2ML ONE ×2 (12:35→12:52)
[2019-12-23] MEDS ORDERED: DEXAMETHASONE 4 MG/ML, 1ML ONE ×2 (12:35→12:52)
[2019-12-23] MEDS ORDERED: METOCLOPRAMIDE 5 MG/ML, 2ML ONE (12:35)
[2019-12-23] MEDS ORDERED: ROCURONIUM 10 MG/ML,10ML ONE (12:35)
[2019-12-23] MEDS ORDERED: LIDOCAINE PF 2%, 5ML ONE (12:35)
[2019-12-23] MEDS ORDERED: CEFAZOLIN 1,000 MG ONE ×3 (12:35→12:52)
[2019-12-23] MEDS ORDERED: LIDOCAINE-MPF 2% ,5ML ONE (12:52)
[2019-12-23] MEDS ORDERED: ROCURONIUM 10MG/ML,5ML ONE (12:52)
[2019-12-23] MEDS ORDERED: HYDROmorphone 1 MG/ML, 1ML INJ IVPush PRN (13:00)
[2019-12-23] MEDS ORDERED: OXYcodone 5 MG/5 ML ORAL.SOL UDC PO PRN (13:00)
[2019-12-23] MEDS ORDERED: KETOROLAC 30 MG/1 ML IV PRN (13:00)
[2019-12-23] MEDS ORDERED: ACETAMINOPHEN 325 MG TABLET PO PRN (13:00)
[2019-12-23] MEDS ORDERED: LORazepam 2 MG/ML, 1ML IVPush PRN (13:00)
[2019-12-23] MEDS ORDERED: PROCHLORPERAZINE 5 MG/ML, 2ML IV PRN (13:00)
[2019-12-23] MEDS ORDERED: ONDANSETRON 2MG/ML, 2ML IV PRN (13:00)
[2019-12-23] MEDS ORDERED: DIPHENHYDRAMINE 50 MG/ML, 1ML IVPush PRN (13:00)
[2019-12-23] MEDS ORDERED: MEPERIDINE/PF 25MG/ML,1ML ONE (13:42)
[2019-12-23] MEDS ORDERED: OXYcodone 5 MG/5 ML ORAL.SOL UDC ONE (13:42)
[2019-12-23] MEDS ORDERED: MEPERIDINE/PF 25MG/ML,1ML IVPush PRN (14:00)
[2019-12-23] MEDS ORDERED: KETOROLAC 30 MG/1 ML ONE (14:11)
[2019-12-23] MEDS: FENTANYL PF 100 MCG/2ML IV PRN ×3 (14:20→14:30)
== END 2019-12-23 17:15 | disposition home or self-care (01) ==
LOC: OUT 10:10
PROVIDERS: ATTEND Surgery
DX: K40.90 Unilateral inguinal hernia, without obstruction or gangrene, not specified as recurrent (principal); M06.9 Rheumatoid arthritis, unspecified; I10 Essential (primary) hypertension; Z79.82 Long term (current) use of aspirin; Z79.890 Hormone replacement therapy; Z79.899 Other long term (current) drug therapy; Z88.8 Allergy status to other drugs, medicaments and biological substances; Z90.49 Acquired absence of other specified parts of digestive tract; Z98.890 Other specified postprocedural states; Z82.49 Family history of ischemic heart disease and other diseases of the circulatory system
CPT/HCPCS: 49650; C1781; J0690; J1100; J1885; J2175; J2250; J2405; J2704; J2765; J3010; J7120; S2900

== ENCOUNTER → 2020-08-01 | Outpatient (CLI) | payer MEDICARE | END | disposition home or self-care (01) | LOC: CFH 07:52 | PROVIDERS: ATTEND Family Medicine | DX: Z12.31 Encounter for screening mammogram for malignant neoplasm of breast (principal) | CPT/HCPCS: 76641; 77063; 77067 ==